=== PATIENT | female | born 1980 | race Caucasian/White ===

== ENCOUNTER 2016-06-11 21:50 | Emergency (ER) | payer MEDICAID ==
[2016-06-11 21:53] VITALS: BMI 48.2
[2016-06-11] MEDS ORDERED: Albuterol-Ipratrop 3 mg / 0.5 (3 ml) UD ONE (21:53)
[2016-06-11] MEDS ORDERED: Promethazine/Cod 6.25mg-10mg/5ml Syr UD PO STA (21:55)
--- NOTE | 2016-06-11 21:56 | ED PDOC ---
Arrival/HPI - General Time Seen by Provider: 06/11/16 21:52 Historian: Patient - History of Present Illness Narrative History of Present Illness (Text): 06/11/16 21:54 Mikey Shukla is a 35 year old female, whose past medical history includes asthma, who presents to the Emergency department complaining of shortness of breath with associated cough since yesterday. Patient states symptoms are similar to previous episodes of asthma. Patient states she had Prednisone yesterday and has been using her child's nebulizer treatments with minimal relief because she ran out of her own medications. Patient denies any fever, chills, chest pain, nausea, vomiting, diarrhea, urinary symptoms, back pain, neck pain, headache, dizziness, or any other complaints. Time/Duration: Other (yesterday) Symptom Onset: Gradual Symptom Course: Unchanged Activities at Onset: Rest, Light Context: Home Past Medical History - Provider Review Nursing Documentation Reviewed: Yes - Tetanus Immunization Tetanus Immunization: Unknown - Cardiac Hx Hypertension: Yes - Pulmonary Hx Asthma: Yes (advait and albuterol inhaler) - Neurological Hx Migraine: Yes Hx Transient Ischemic Attacks (TIA): Yes (last year) - HEENT Hx HEENT Disorder: Yes (glasses) - Endocrine/Metabolic Hx Endocrine Disorders: No - Hematological/Oncological Hx Blood Disorders: No - Integumentary Hx Dermatological Disorder: No - Musculoskeletal/Rheumatological Hx Fractures: Yes (left wrist orif) - Gastrointestinal Hx Gastrointestinal Disorders: No - Genitourinary/Gynecological Hx Genitourinary Disorders: No Other/Comment: Bilateral ovarian cysts - Psychiatric Hx Substance Use: No - Past Surgical History Past Surgical History: No Previous - Surgical History Hx Orthopedic Surgery: Yes - Anesthesia Hx Anesthesia: Yes Hx Anesthesia Reactions: No Hx Malignant Hyperthermia: No - Suicidal Assessment Feels Threatened In Home Enviroment: No Family/Social History - Physician Review Nursing Documentation Reviewed: Yes Family/Social History: No Known Family HX Smoking Status: Never Smoked Hx Alcohol Use: No Hx Substance Use: No Hx Substance Use Treatment: No Allergies/Home Meds Allergies/Adverse Reactions: Allergies No Known Allergies Allergy (Verified 06/11/16 21:53) Home Medications: Home Meds Medication Instructions Recorded Confirmed Albuterol HFA [Ventolin HFA 90 1 puff IH PRN PRN 02/21/14 06/11/16 mcg/actuation (8 g)] Ethinyl Estradiol/Norgestrel 1 tab PO DAILY 02/21/14 06/11/16 [Lo/Ovral 30 Mcg-0.3 mg] Acetaminophen [Tylenol] 325 mg PO Q6 02/27/14 06/11/16 Fluticasone/Salmeterol 250/50 1 dsk IH DAILY 02/27/14 06/11/16 [Advair Diskus] Ketorolac Tromethamine [Toradol] 10 mg PO Q8 02/27/14 06/11/16 Review of Systems - Physician Review All systems were reviewed & negative as marked: Yes - Review of Systems Constitutional: Normal. absent: Fevers Eyes: Normal ENT: Normal Respiratory: SOB, Cough Cardiovascular: Normal. absent: Chest Pain Gastrointestinal: Normal. absent: Abdominal Pain, Diarrhea, Nausea, Vomiting Genitourinary Female: Normal. absent: Dysuria, Frequency, Hematuria, Urine Output Changes Musculoskeletal: Normal. absent: Back Pain, Neck Pain Skin: Normal. absent: Rash Neurological: Normal. absent: Headache, Dizziness Endocrine: Normal Hemo/Lymphatic: Normal Psychiatric: Normal Physical Exam Vital Signs Reviewed: Yes Vital Signs Temp Pulse Resp BP Pulse Ox 06/12/16 00:18 82 16 98 06/12/16 00:15 98.2 F 90 16 98 06/11/16 22:10 18 98 06/11/16 22:03 164/94 H 06/11/16 21:55 98.1 F 90 20 95 Temperature: Afebrile Blood Pressure: Normal Pulse: Regular Respiratory Rate: Normal Appearance: Positive for: Well-Appearing, Non-Toxic, Comfortable Pain Distress: None Mental Status: Positive for: Alert and Oriented X 3 - Systems Exam Head: Present: Atraumatic, Normocephalic Pupils: Present: PERRL Extroacular Muscles: Present: EOMI Conjunctiva: Present: Normal Mouth: Present: Moist Mucous Membranes Neck: Present: Normal Range of Motion Respiratory/Chest: Present: Wheezes. No: Respiratory Distress, Accessory Muscle Use Cardiovascular: Present: Regular Rate and Rhythm, Normal S1, S2. No: Murmurs Abdomen: Present: Normal Bowel Sounds. No: Tenderness, Distention, Peritoneal Signs Back: Present: Normal Inspection Upper Extremity: Present: Normal Inspection. No: Cyanosis, Edema Lower Extremity: Present: Normal Inspection. No: Edema Neurological: Present: GCS=15, CN II-XII Intact, Speech Normal Skin: Present: Warm, Dry, Normal Color. No: Rashes Psychiatric: Present: Alert, Oriented x 3, Normal Insight, Normal Concentration Medical Decision Making ED Course and Treatment: 06/11/16 21:55 Impression: 35 year old female complaining of shortness of breath and cough tonight. Differential Diagnosis include but are not limited to: asthma vs. bronchitis Plan: -- Duoneb -- Solu-medrol -- Phenergan -- Reassess and disposition Prior Visits: Notes and results from previous visits were reviewed. Progress Notes: 06/11/16 23:40 On re-evaluation, the patient feels better and is in no acute distress. I have discussed the results and plan with the patient, who expresses understanding. Patient in agreement with plan to discharged home. Patient is stable for discharge. Patient was instructed to follow up with physician/clinic in 1-2 days or return if symptoms worsen or new concerning symptoms arise. Re-evaluation Time: 23:42 Reassessment Condition: Re-examined, Improved - Medication Orders Current Medication Orders: Discontinued Medications Albuterol/Ipratropium (Duoneb 3 Mg/0.5 Mg (3 Ml) Ud) Confirm Administered Dose 3 ml .ROUTE .STK-MED ONE Stop: 06/11/16 21:54 Last Admin: 06/11/16 22:14 Dose: Albuterol/Ipratropium (Duoneb 3 Mg/0.5 Mg (3 Ml) Ud) 3 ml IH Q15M OSCAR Stop: 06/11/16 22:31 Last Admin: 06/11/16 22:53 Dose: 3 ML Azithromycin (Zithromax) 500 mg PO ONCE STA PRN Reason: Protocol Stop: 06/11/16 23:48 Last Admin: 06/12/16 00:13 Dose: 500 MG Methylprednisolone (Solu-Medrol) 125 mg IVP ONCE ONE Stop: 06/11/16 21:56 Last Admin: 06/11/16 22:14 Dose: 125 MG IVP Administration Document 06/11/16 22:14 [facility] (Rec: 06/11/16 22:14 [facility] [id number]) Charges for Administration # of IVP Administrations 1 Promethazine HCl/Codeine (Phenergan/Codeine Oral Syrup) 5 ml PO ONCE STA Stop: 06/11/16 21:56 Last Admin: 06/11/16 22:14 Dose: 5 ML - Scribe Statement The provider has reviewed the documentation as recorded by the Beny Arellano Provider Attestation: All medical record entries made by the Kassyibjony were at my direction and personally dictated by me. I have reviewed the chart and agree that the record accurately reflects my personal performance of the history, physical exam, medical decision making, and the department course for this patient. I have also personally directed, reviewed, and agree with the discharge instructions and disposition. Disposition/Present on Arrival - Present on Arrival Any Indicators Present on Arrival: No History of DVT/PE: No History of Uncontrolled Diabetes: No Urinary Catheter: No History Surgical Site Infection Following: None - Disposition Have Diagnosis and Disposition been Completed?: Yes Diagnosis: Asthma, Bronchitis Disposition: HOME/ ROUTINE Disposition Time: 23:43 Condition: GOOD Discharge Instructions (ExitCare): Asthma (ED), Acute Bronchitis (ED) Prescriptions: Albuterol 0.083% [Albuterol Sulfate 3 Ml] 0.5 ml IH QID #25 neb Promethazine/Codeine [Codeine/Promethazine 10 MG/5 Ml-6.25 MG/5 Ml] 5 ml PO QID #100 ml Albuterol HFA [Ventolin HFA] 1 puff IH QID #1 puff Azithromycin [Zithromax] 250 mg PO DAILY #4 tab predniSONE [predniSONE Tab] 20 mg PO TID #15 tab
[2016-06-11] MEDS: Albuterol-Ipratrop 3 mg / 0.5 (3 ml) UD IH SCH ×3 (22:00→22:53)
[2016-06-11 22:03] VITALS: BP 164/94
[2016-06-12 00:16] VITALS: RESP 16; TEMP 98.2; O2SAT 98
[2016-06-12 00:19] VITALS: PULSE 82
== END 2016-06-12 00:19 | disposition home or self-care (01) ==
LOC: ED 21:50
DX: J45.909 Unspecified asthma, uncomplicated (principal)
CPT/HCPCS: 96374; 99284; J2930

== ENCOUNTER 2016-09-27 04:51 | Observation (INO) | payer MEDICAID ==
--- NOTE | 2016-09-27 05:13 | ED PDOC ---
Arrival/HPI - General Chief Complaint: Chest Pain Time Seen by Provider: 09/27/16 04:56 Historian: Patient - History of Present Illness Narrative History of Present Illness (Text): 09/27/16 05:09 Mikey Shukla is a 35 year old female, occasional smoker, presents to the emergency department complaining of epigastric/chest pain for past hour.Pt. describes discomfort as both a heaviness and burning sensation not accompanied by any SOB. Reports that pain is currently improving. Denies any fever, chills, headache, dizziness, shortness of breath, nausea, vomiting, diarrhea, urinary symptoms, or any other complaints at this time. Time/Duration: 1 hour Symptom Onset: Sudden Symptom Course: Improving Severity Level: Mild Activities at Onset: Light Context: Home Past Medical History - Provider Review Nursing Documentation Reviewed: Yes - Tetanus Immunization Tetanus Immunization: Unknown - Cardiac Hx Cardiac Disorders: No - Pulmonary Hx Asthma: Yes (advait and albuterol inhaler) Hx Pulmonary Embolism: Yes (2 yr) - Neurological Hx Migraine: Yes Hx Transient Ischemic Attacks (TIA): Yes (last year) - HEENT Hx HEENT Disorder: No (glasses) - Renal Hx Renal Disorder: No - Endocrine/Metabolic Hx Endocrine Disorders: No - Hematological/Oncological Hx Blood Disorders: No - Integumentary Hx Dermatological Disorder: No - Musculoskeletal/Rheumatological Hx Fractures: Yes (left wrist orif) - Gastrointestinal Hx Gastrointestinal Disorders: No Hx Gastritis: Yes - Genitourinary/Gynecological Hx Genitourinary Disorders: No Other/Comment: Bilateral ovarian cysts - Psychiatric Hx Anxiety: Yes Hx Emotional Abuse: No Hx Physical Abuse: No Hx Substance Use: No - Past Surgical History Past Surgical History: No Previous - Surgical History Hx Cholecystectomy: Yes Hx Orthopedic Surgery: Yes Hx Tubal Ligation: Yes - Anesthesia Hx Anesthesia: Yes Hx Anesthesia Reactions: No Hx Malignant Hyperthermia: No - Suicidal Assessment Feels Threatened In Home Enviroment: No Family/Social History - Physician Review Nursing Documentation Reviewed: Yes Family/Social History: No Known Family HX Smoking Status: Light Smoker < 10 Cigarettes Daily Hx Alcohol Use: No Hx Substance Use: No Hx Substance Use Treatment: No Allergies/Home Meds Allergies/Adverse Reactions: Allergies No Known Allergies Allergy (Verified 09/27/16 04:59) Home Medications: Home Meds Medication Instructions Recorded Confirmed No Known Home Med 09/27/16 09/27/16 Review of Systems - Physician Review All systems were reviewed & negative as marked: Yes - Review of Systems Constitutional: Normal. absent: Fatigue, Fevers Respiratory: Normal. absent: SOB, Cough Cardiovascular: Chest Pain. absent: Palpitations Gastrointestinal: Abdominal Pain (epigastric ). absent: Diarrhea, Nausea, Vomiting Genitourinary Female: Normal. absent: Dysuria, Frequency Neurological: Normal. absent: Headache, Dizziness Psychiatric: Normal Physical Exam Vital Signs Reviewed: Yes Vital Signs Temp Pulse Resp BP Pulse Ox 09/27/16 05:00 98.2 F 74 16 123/88 100 Temperature: Afebrile Blood Pressure: Normal Pulse: Regular Respiratory Rate: Normal Appearance: Positive for: Non-Toxic, Comfortable, Other (Morbidly obese) Pain Distress: None Mental Status: Positive for: Alert and Oriented X 3 - Systems Exam Head: Present: Atraumatic, Normocephalic Pupils: Present: PERRL Extroacular Muscles: Present: EOMI Conjunctiva: Present: Normal Respiratory/Chest: Present: Clear to Auscultation, Good Air Exchange. No: Respiratory Distress, Accessory Muscle Use Cardiovascular: Present: Regular Rate and Rhythm, Normal S1, S2. No: Murmurs Abdomen: Present: Tenderness (epigastric), Normal Bowel Sounds. No: Distention , Peritoneal Signs, Rebound, Guarding Upper Extremity: Present: Normal Inspection. No: Cyanosis, Edema Lower Extremity: Present: Normal Inspection. No: Edema Neurological: Present: GCS=15, CN II-XII Intact, Speech Normal, Motor Func Grossly Intact, Normal Sensory Function Skin: Present: Warm, Dry, Normal Color. No: Rashes Psychiatric: Present: Alert, Oriented x 3, Normal Insight, Normal Concentration Medical Decision Making ED Course and Treatment: 09/27/16 05:16 Impression: A 35 year old female who presents to the emergency department complaining of chest/epigastric pain. Plan: -- EKG -- Labs, cardiac enzymes -- Chest X-ray -- Reassess and disposition Progress Notes: 09/27/16 05:19 EKG interpreted by me: NSR @ 67 bpm. Normal axis. Normal interval. - Lab Interpretations Lab Results: 09/27/16 05:30 Lab Results 09/27/16 05:30: WBC 12.2 H, RBC 4.68, Hgb 11.8 L, Hct 36.5, MCV 78.0 L, MCH 25.2 , MCHC 32.3, RDW 16.0 H, Plt Count 286, MPV 11.8 H 09/27/16 05:30: PT 10.4, INR 0.96, APTT 29.9 I have reviewed the lab results: Yes - EKG Interpretation Interpreted by ED Physician: Yes Type: 12 lead EKG - Medication Orders Current Medication Orders: Discontinued Medications Famotidine (Pepcid) 20 mg IVP STAT STA Stop: 09/27/16 05:19 Last Admin: 09/27/16 05:31 Dose: 20 mg - Transfer of Care Patient signed out to Dr:: Gelacio Pending Labs:: Labs/abdominal U/S,reassess/final disposition - Scribe Statement The provider has reviewed the documentation as recorded by the Kassyibe Cali Nova Provider Attestation: Provider Scribe Attestation: All medical record entries made by the Scribe were at my direction and personally dictated by me. I have reviewed the chart and agree that the record accurately reflects my personal performance of the history, physical exam, medical decision making, and the department course for this patient. I have also personally directed, reviewed, and agree with the discharge instructions and disposition. Disposition/Present on Arrival - Present on Arrival Any Indicators Present on Arrival: No History of DVT/PE: No History of Uncontrolled Diabetes: No Urinary Catheter: No History of Decub. Ulcer: No History Surgical Site Infection Following: None - Disposition Have Diagnosis and Disposition been Completed?: No Diagnosis: Epigastric pain Disposition Time: 07:00 Condition: STABLE Forms: [facility] ([place])
[2016-09-27 05:41] LABS: HEMOGLOBIN 11.8 gm/dL (12.0-16.0); MEAN CORPUSCULAR HEMOGLOBIN 25.2 pg (25.0-35.0); MEAN CORPUSCULAR HGB CONC 32.3 g/dl (31.0-37.0); MEAN PLATELET VOLUME 11.8 fl (7.0-11.0); RBC 4.68 10^6/uL (3.5-6.1); WHITE BLOOD COUNT 12.2 10^3/ul (4.5-11.0)
[2016-09-27 05:47] LABS: INR 0.96 (0.93-1.08); PARTIAL THROMBOPLASTIN TIME 29.9 Seconds (23.7-30.8); PROTHROMBIN TIME 10.4 Seconds (9.9-11.8)
[2016-09-27 06:21] LABS: ALB/GLOB RATIO 1.2 (1.1-1.8); ALBUMIN 3.7 g/dL (3.0-4.8); ALT/SGPT 20 U/L (7-56); AST/SGOT 19 U/L (15-39); BLOOD UREA NITROGEN 9 mg/dL (7-21); CALCIUM 8.9 mg/dL (8.4-10.5); GFR AFRICAN-AMERICAN > 60; GFR NON-AFRICAN AMERICAN > 60; LIPASE 156 U/L (23-300)
[2016-09-27 06:55] LABS: TROPONIN I < 0.01 ng/mL
--- NOTE | 2016-09-27 07:04 | ED PDOC ---
Physical Exam Vital Signs Temp Pulse Resp BP Pulse Ox 09/27/16 07:54 72 18 120/83 98 09/27/16 05:00 98.2 F 74 16 123/88 100 Medical Decision Making ED Course and Treatment: 09/27/16 07:04: Patient sign out from overnight. Presence of Leukocytosis. Patient complaining of epigastric pain. Pending ultrasound. 09/27/16 07:31: Patient currently in no distress. Abdomen soft, non-tender. Notes that her pain was epigastric and retro-sternal. Notes that she has a TIA in the past. Patient with be observed for rule out ACS. Hospitalist paged. Pt aware of and agrees with plan. 09/27/16 07:30: EKG: Ordered, reviewed, and independently interpreted the EKG. Rate : 67 BPM Rhythm : NSR Interpretation : No ST-segment elevations, normal axis, normal intervals. Interpreted by me. 09/27/16 07.33: Case discussed with Dr. Suarez. Accepted observation to telemetry under his service. 09/27/16 08:08 Abdomen Ultrasound Dictator : Nagi Sood MD Report Date : 09/27/2016 08:02:46 IMPRESSION: Hepatomegaly suggested however no focal mass is seen the liver or prominent biliary duct dilatation. The gallbladder is not identified identified suggesting prior cholecystectomy. Clinically correlate. Common bile duct is dilated to 7.7 mm which may be on the basis of prior cholecystectomy. Partial imaging of the pancreas. The remainder the examination appears unremarkable. - Lab Interpretations Lab Results: 09/27/16 05:30 09/27/16 05:30 Lab Results 09/27/16 05:30: TSH 3rd Generation 6.34 H 09/27/16 05:30: Triglycerides 79, Cholesterol 108 L, LDL Cholesterol Direct 85, HDL Cholesterol 20 L 09/27/16 05:30: WBC 12.2 H, RBC 4.68, Hgb 11.8 L, Hct 36.5, MCV 78.0 L, MCH 25.2 , MCHC 32.3, RDW 16.0 H, Plt Count 286, MPV 11.8 H 09/27/16 05:30: Sodium 141, Potassium 3.5 L, Chloride 109, Carbon Dioxide 22, Anion Gap 14, BUN 9, Creatinine 0.7, Est GFR ( Amer) > 60, Est GFR (Non- Af Amer) > 60, Random Glucose 120 H, Calcium 8.9, Total Bilirubin 0.3, AST 19, ALT 20, Alkaline Phosphatase 64, Lactate Dehydrogenase 338, Total Creatine Kinase 79, Troponin I < 0.01, Total Protein 6.8, Albumin 3.7, Globulin 3.1, Albumin/Globulin Ratio 1.2, Lipase 156 09/27/16 05:30: PT 10.4, INR 0.96, APTT 29.9 - RAD Interpretation Radiology Orders: 09/27/16 06:43 ABDOMEN COMPLETE [US] Stat - Medication Orders Current Medication Orders: Enoxaparin Sodium (Lovenox) 40 mg SC DAILY OSCAR PRN Reason: Protocol Last Admin: 09/27/16 11:04 Dose: 40 mg Ondansetron HCl (Zofran Inj) 4 mg IVP Q4H PRN PRN Reason: Nausea/Vomiting Pantoprazole Sodium (Protonix Inj) 40 mg IVP DAILY [facility] Last Admin: 09/27/16 11:05 Dose: 40 mg Discontinued Medications Aspirin (Aspirin Chewable) 324 mg PO STAT STA Stop: 09/27/16 07:32 Last Admin: 09/27/16 08:19 Dose: 324 mg Aspirin (Aspirin Chewable) Confirm Administered Dose 324 mg .ROUTE .STK-MED ONE Stop: 09/27/16 07:59 Last Admin: 09/27/16 09:11 Dose: 324 mg Comments: duplicate Famotidine (Pepcid) 20 mg IVP STAT STA Stop: 09/27/16 05:19 Last Admin: 09/27/16 05:31 Dose: 20 mg Potassium Chloride (K-Dur 20 Meq Er Tab) 40 meq PO STAT STA Stop: 09/27/16 08:20 Last Admin: 09/27/16 09:11 Dose: 40 meq - Scribe Statement The provider has reviewed the documentation as recorded by the Beny Mai Provider Kassyibe Attestation: All medical record entries made by the Scribjony were at my direction and personally dictated by me. I have reviewed the chart and agree that the record accurately reflects my personal performance of the history, physical exam, medical decision making, and the department course for this patient. I have also personally directed, reviewed, and agree with the discharge instructions and disposition. Disposition/Present on Arrival - Present on Arrival Any Indicators Present on Arrival: No History of DVT/PE: No History of Uncontrolled Diabetes: No Urinary Catheter: No History of Decub. Ulcer: No History Surgical Site Infection Following: None - Disposition Have Diagnosis and Disposition been Completed?: Yes Diagnosis: Chest pain Disposition: HOSPITALIZED Disposition Time: 07:34 Patient Plan: Observation Patient Problems: Current Active Problems Problem Status Onset Chest pain Acute Condition: STABLE
--- NOTE | 2016-09-27 08:04 | US ---
HISTORY: pain COMPARISON: TECHNIQUE: Sonographic evaluation of the abdomen. FINDINGS: LIVER: Measures 21.7 cm. Normal echogenicity of the liver parenchyma. No mass. No intrahepatic bile duct dilatation. GALLBLADDER: Appears to be surgically absent. Clinically correlate further. COMMON BILE DUCT: Measures 7.7 mm. Very mildly dilated, likely on the basis of prior cholecystectomy. No choledocholithiasis identified. PANCREAS: The tail of the pancreas is obscured by overlying bowel remainder unremarkable appearing. RIGHT KIDNEY: Measures 12.7 x 5.4 x 5.5cm. No focal cyst or solid lesion identified. No calculus, or hydronephrosis. LEFT KIDNEY: Measures 14.3 x 4.9 x 5.5cm. No focal cyst or solid lesion identified. No calculus, or hydronephrosis. SPLEEN: Normal in size and contour. No mass. AORTA: No aneurysmal dilatation. IVC: Unremarkable. OTHER FINDINGS: None. IMPRESSION: Hepatomegaly suggested however no focal mass is seen the liver or prominent biliary duct dilatation. The gallbladder is not identified identified suggesting prior cholecystectomy. Clinically correlate. Common bile duct is dilated to 7.7 mm which may be on the basis of prior cholecystectomy. Partial imaging of the pancreas. The remainder the examination appears unremarkable.
[2016-09-27] MEDS ORDERED: Potassium Chloride 20 mEq ER Tab PO STA (08:19)
--- NOTE | 2016-09-27 10:07 | CARD ---
APPROVED REPORT EKG Measurement Heart [id number] IN [id number] <Conclusion> Normal sinus rhythm Normal ECG
[2016-09-27 10:30] LABS: HDL CHOLESTEROL 20 mg/dL (29-60)
[2016-09-27 10:41] LABS: LDL CHOLESTEROL 85 mg/dL (0-129)
[2016-09-27] MEDS: Enoxaparin 40 mg Syringe SC SCH (11:04)
--- NOTE | 2016-09-27 13:15 | CP.PCM.HP ---
<Kenyatta Kumar - Last Filed: 09/27/16 13:11> History of Present Illness - History of Present Illness History of Present Illness: 35F presented to the ED with mid-epigastric pain that is characterized as dull and burning. It worse when laying down. Patient states she ate chicken nuggets at 10:30pm, fell asleep at 12:30am, woke up at 4am with pain. Pain is localized to midepigastric region. does not radiate to the back or shoulders. The pain has not gone away. Patient denies vomitting, admits to some nausea, and some shortness of breath. Patient denies Fever, Chills, constipation, diarrhea, lower abdominal pain. Patient admits to palpitations 4 months ago and states her mother and sister get the same kind of palpitations. Patient states she has been worked up for cardiac issues in the past (3 years ago). The work-up included stress tests, 48 hour holter monitor, and echo. All of which were normal. Patient is currently on her period (day 3). Normal cycle. normal flow per patient's observation. PMH: asthma, pre-DM, TIA (2013), PE complication from tubal ligation PSH: laparoscopic tubal ligation with PE complication ALL: NKDA PMD: Dr. Norton Present on Admission - Present on Admission Any Indicators Present on Admission: Yes History of DVT/PE: Yes History of Uncontrolled Diabetes: No Urinary Catheter: No Decubitus Ulcer Present: No Review of Systems - Constitutional Constitutional: As Per HPI. absent: Increased Appetite - EENT Eyes: absent: Blurred Vision, Loss of Peripheral Vision Ears: absent: Abnormal Hearing Nose/Mouth/Throat: absent: Nasal Discharge, Dysphagia, Throat Swelling, Tongue Swelling - Respiratory Respiratory: absent: Cough, Wheezing, Excessive Mucous Production Additional comments: SOB Past Patient History - Tetanus Immunizations Tetanus Immunization: Unknown - Past Medical History & Family History Past Medical History?: Yes - Past Social History Smoking Status: Hookah on occasion Alcohol: Social Drugs: Denies - CARDIAC Hx Cardiac Disorders: No - PULMONARY Hx Asthma: Yes (advait and albuterol inhaler) Hx Pulmonary Embolism: Yes (2 yr) - NEUROLOGICAL Hx Migraine: Yes Hx Transient Ischemic Attacks (TIA): Yes (last year) - HEENT Hx HEENT Problems: No (glasses) - RENAL Hx Chronic Kidney Disease: No - ENDOCRINE/METABOLIC Hx Endocrine Disorders: No - HEMATOLOGICAL/ONCOLOGICAL Hx Blood Disorders: No - INTEGUMENTARY Hx Dermatological Problems: No - MUSCULOSKELETAL/RHEUMATOLOGICAL Hx Fractures: Yes (left wrist orif) - GASTROINTESTINAL Hx Gastrointestinal Disorders: No Hx Gastritis: Yes - GENITOURINARY/GYNECOLOGICAL Hx Genitourinary Disorders: No Other/Comment: Bilateral ovarian cysts - PSYCHIATRIC Hx Anxiety: Yes Hx Emotional Abuse: No Hx Physical Abuse: No Hx Substance Use: No - SURGICAL HISTORY Hx Cholecystectomy: Yes Hx Orthopedic Surgery: Yes Hx Tubal Ligation: Yes - ANESTHESIA Hx Anesthesia: Yes Hx Anesthesia Reactions: No Hx Malignant Hyperthermia: No Meds Home Medications: Home Medication List Medication Instructions Recorded Confirmed Type Levothyroxine [Synthroid] 25 mcg PO DAILY #30 tab 09/28/16 Rx Pantoprazole Sodium [Protonix] 40 mg PO DAILY #30 tablet. 09/28/16 Rx Allergies/Adverse Reactions: Allergies Allergy/AdvReac Type Severity Reaction Status Date / Time No Known Allergies Allergy Verified 09/27/16 11:25 Results - Vital Signs Recent Vital Signs: Last Vital Signs Temp 98.2 F 09/27/16 07:54 Pulse 68 09/27/16 12:18 Resp 18 09/27/16 12:18 BP 118/77 09/27/16 12:18 Pulse Ox 100 09/27/16 12:18 - Labs Result Diagrams: 09/27/16 05:30 09/27/16 05:30 Labs: Laboratory Results - last 24 hr 09/27/16 09/27/16 08:20 11:45 D-Dimer, Quantitative 0.19 Troponin I < 0.01 - EKG Data EKG Interpreted by: ER Physician EKG shows normal: Sinus rhythm Rate: Normal Assessment & Plan - Assessment and Plan (Free Text) Assessment: 35 F presents with midepigastric pain that worsens when laying down. 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 advise to quit Hx of Asthma albuterol PRN history of PE f/u echo to evaluate LV function, f/u duplex LE INR 0.96 DVT/GI PPX Lovenox/Pepcid Kenyatta Eng, DO PGY1 <Rowdy Snyder - Last Filed: 09/28/16 17:11> Results - Vital Signs Recent Vital Signs: Last Vital Signs Temp 98.2 F 09/27/16 12:45 Pulse 72 09/27/16 12:45 Resp 18 09/27/16 12:45 BP 118/77 09/27/16 12:45 Pulse Ox 100 09/27/16 12:18 - Labs Result Diagrams: 09/28/16 05:00 09/28/16 05:00 Labs: Laboratory Results - last 24 hr 09/27/16 09/27/16 08:20 11:45 D-Dimer, Quantitative 0.19 Troponin I < 0.01 Attending/Attestation - Attestation I have personally seen and examined this patient.: Yes I have fully participated in the care of the patient.: Yes I have reviewed all pertinent clinical information: Yes Notes (Text): 09/27/16 17:41 attending note; Patient seen and examined with resident in ER. Patient is a 35-year-old obese female admitted with epigastric/chest pain. Risk factors includes obesity, hyperlipidemia, history of PE in the past. Admit to telemetry. Cardiac enzymes x3 ordered. d-dimer is negative. Venous Doppler is negative. cardiology evaluation requested. TSH/lipid profile ordered. Obesity; diet, exercise and weight reduction advised. Epigastric pain; needs outpatient GI evaluation for endoscopy. Continue Protonix for now. Fatty liver. LFTs normal. Upon discharge the patient will follow-up with PMD .
[2016-09-27 13:18] VITALS: BMI 58.2
[2016-09-27] MEDS ORDERED: Pneumococcal 23-Valent Vaccine IM ONE (13:18)
[2016-09-27] MEDS ORDERED: Alum-Mag Hydrox-Simethicone Susp (30 mL) PO PRN (14:42)
--- NOTE | 2016-09-27 16:52 | CARD ---
APPROVED REPORT EXAM: Two-dimensional and M-mode echocardiogram with Doppler and color Doppler. INDICATION LVFX 2D DIMENSIONS Left Atrium (2D)4.1 (1.6-4.0cm)IVSd1.0 (0.7-1.1cm) LVDd4.6 (3.9-5.9cm)PWd1.1 (0.7-1.1cm) LVDs3.2 (2.5-4.0cm)FS (%) 30.6 % LVEF (%)58.2 (>50%) M-Mode DIMENSIONS Aortic Root3.40 (2.2-3.7cm)Aortic Cusp Exc.1.80 (1.5-2.0cm) Aortic Valve AoV Peak Cqunupzz197.0cm/Amira Peak GR.9mmHg Mitral Valve MV E Zfmlcydr718.0cm/sMV A Ezozyipu82.4cm/sE/A ratio1.2 TDI Lateral E' Peak V10.10cm/sMedial E' Peak V8.77cm/sE/Lateral E'10.2 E/Medial E'11.7 Pulmonary Valve PV Peak Rqcreqgw13.1cm/sPV Peak Grad.2mmHg Tricuspid Valve TR Peak Irwmlpbf539zb/sRAP [id number] Peak Gr.22mmHg [id number] LEFT VENTRICLE The left ventricle is normal size. There is normal left ventricular wall thickness. The left ventricular function is normal. The left ventricular ejection fraction is within the normal range. There is normal LV segmental wall motion. RIGHT VENTRICLE The right ventricle is normal size. The right ventricular systolic function is normal. ATRIA The left atrium is borderline dilated. The right atrium size is normal. The interatrial septum is intact with no evidence for an atrial septal defect. AORTIC VALVE The aortic valve is normal in structure. No aortic regurgitation is present. There is no aortic valvular stenosis. MITRAL VALVE The mitral valve is normal in structure. There is no mitral valve regurgitation noted. TRICUSPID VALVE The tricuspid valve is normal in structure. There is mild tricuspid regurgitation. PULMONIC VALVE The pulmonary valve is normal in structure. GREAT VESSELS The aortic root is normal in size. The IVC is normal in size and collapses >50% with inspiration. PERICARDIAL EFFUSION There is no pleural effusion. There is no pericardial effusion. <Conclusion> Borderline LA enlargement. Normal LV size and systolic function. Mild TR.
--- NOTE | 2016-09-27 18:31 | US ---
HISTORY: Leg pain and swelling. Evaluate for DVT PHYSICIAN(S): Saul Smith MD. TECHNIQUE: Duplex sonography and color-flow Doppler with graded compression were used to evaluate the deep venous systems of both lower extremities. FINDINGS: The visualized deep venous systems of both lower extremities are sonographically normal and compressible. Normal wave forms and augmentation are seen. There is no sonographic evidence for deep venous thrombosis in the visualized segments of both lower extremities. IMPRESSION: No sonographic evidence for deep venous thrombosis in the visualized segments of both lower extremities.
[2016-09-27 18:52] VITALS: RESP 19
--- NOTE | 2016-09-28 00:27 | CON ---
REASON FOR CONSULTATION: Epigastric discomfort. HISTORY OF PRESENT ILLNESS: The patient is a 35-year-old morbidly obese female who has a history of TIA according to the patient some 4 years ago at [facility] when she lost power in her left upper and lower extremity. The patient does have a history of pulmonary embolism, was diagnosed in February 2014; however, apparently with complication of tubal ligation that was performed in January 2014. The patient was placed on Coumadin therapy for 1 year and the patient was screened by her space operations for hypercoagulable state and was told she does not have to continue on Coumadin after 1 year. The patient underwent cholecystectomy in November of last year. She presents because of epigastric burning sensation and is unaware of any prior history of heart attack in the past. SOCIAL HISTORY: The patient is occasional smoker. PAST MEDICAL HISTORY: History of bronchial asthma, history of pulmonary embolism diagnosed in February 2014. MEDICATIONS: Lovenox 40 mg subcutaneous once a day, Maalox 30 mL p.o. daily p.r.n., Protonix 40 mg , Synthroid 25 mcg once a day, Zofran 4 mg q. 4 hours p.r.n. PHYSICAL EXAMINATION: GENERAL: The patient is a middle-aged female who does not appear to be in acute distress. VITAL SIGNS: Blood pressure 118/77, heart rate 68, temperature 98.2 and respirations 18. HEENT: Head normocephalic. CHEST: Clear. HEART: S1 and S2, regular. ABDOMEN: Soft. EXTREMITIES: No edema or calf tenderness. LABORATORY DATA: Two sets of troponin are negative. SMA-7 within normal limits except for potassium 3.5 and glucose of 120. TSH level is 6.34. Lipase is 156. PT, PTT, D-dimer are within normal limits. Hemoglobin, hematocrit 11.8 and 36.5, white count 12.2 and platelet count 186,000. Venous Doppler lower extremity reports still pending. ASSESSMENT: 1. Atypical chest pain, myocardial infarction is ruled out. 2. Rule out gastritis or peptic ulcer disease. 3. Borderline hypokalemia, which was already replaced with 40 mEq of KCl orally. RECOMMENDATIONS: Continue current IV Protonix, continue Synthroid, and prophylaxis subcutaneous Lovenox and case was discussed with Dr. Leiva. I will follow the echocardiograph study which was performed today. No invasive cardiac workup is justified at this time. Abram Zafar MD
[2016-09-28] MEDS ORDERED: Levothyroxine 25 MCG TAB PO SCH (06:00)
[2016-09-28 06:38] VITALS: BP 117/64; TEMP 98.5
[2016-09-28 08:25] LABS: BASO # 0.02 K/mm3 (0.0-2.0); BASO % 0.2 % (0.0-3.0); EOS # 0.1 (0.0-0.7); EOS % 1.5 % (1.5-5.0); GRAN # 6.25 (1.4-6.5); GRAN % 67.2 % (50.0-68.0); HEMOGLOBIN 12.3 gm/dL (12.0-16.0); LYMPH # 2.3 (1.2-3.4); LYMPH % 24.6 % (22.0-35.0); MEAN CELL VOLUME 78.6 fL (80.0-105.0); MEAN CORPUSCULAR HEMOGLOBIN 25.1 pg (25.0-35.0); MEAN CORPUSCULAR HGB CONC 31.9 g/dl (31.0-37.0); MEAN PLATELET VOLUME 12.1 fl (7.0-11.0); MONO # 0.6 (0.1-0.6); MONO % 6.5 % (1.0-6.0); PLATELET COUNT 282 10^3/uL (120.0-450.0); WHITE BLOOD COUNT 9.3 10^3/ul (4.5-11.0)
[2016-09-28 08:37] LABS: ALB/GLOB RATIO 1.1 (1.1-1.8); ALBUMIN 3.8 g/dL (3.0-4.8); ALT/SGPT 28 U/L (7-56); AST/SGOT 21 U/L (15-39); BLOOD UREA NITROGEN 11 mg/dL (7-21); GFR AFRICAN-AMERICAN > 60; GFR NON-AFRICAN AMERICAN > 60
[2016-09-28] MEDS: Enoxaparin 40 mg Syringe SC SCH (09:20)
--- NOTE | 2016-09-28 10:53 | CP.PCM.DIS ---
<JoséKenyatta - Last Filed: 09/28/16 10:56> Provider - Provider Date of Admission: 09/27/16 07:35 Attending physician: Desire Suarez MD Consults: Dr. Zafar - Cardiology Time Spent in preparation of Discharge (in minutes): 30 Hospital Course - Lab Results Lab Results: Most Recent Lab Values WBC 9.3 10^3/ul (4.5-11.0) D 09/28/16 05:00 RBC 4.90 10^6/uL (3.5-6.1) 09/28/16 05:00 Hgb 12.3 gm/dL (12.0-16.0) 09/28/16 05:00 Hct 38.5 % (36.0-48.0) 09/28/16 05:00 MCV 78.6 fL (80.0-105.0) L 09/28/16 05:00 MCH 25.1 pg (25.0-35.0) 09/28/16 05:00 MCHC 31.9 g/dl (31.0-37.0) 09/28/16 05:00 RDW 16.0 % (11.5-14.5) H 09/28/16 05:00 Plt Count 282 10^3/uL (120.0-450.0) 09/28/16 05:00 MPV 12.1 fl (7.0-11.0) H 09/28/16 05:00 Gran % 67.2 % (50.0-68.0) 09/28/16 05:00 Lymph % (Auto) 24.6 % (22.0-35.0) 09/28/16 05:00 [place] % (Auto) 6.5 % (1.0-6.0) H 09/28/16 05:00 Eos % (Auto) 1.5 % (1.5-5.0) 09/28/16 05:00 Baso % (Auto) 0.2 % (0.0-3.0) 09/28/16 05:00 Gran # 6.25 (1.4-6.5) 09/28/16 05:00 Lymph # 2.3 (1.2-3.4) 09/28/16 05:00 [place] # 0.6 (0.1-0.6) 09/28/16 05:00 Eos # 0.1 (0.0-0.7) 09/28/16 05:00 Baso # 0.02 K/mm3 (0.0-2.0) 09/28/16 05:00 PT 10.4 Seconds (9.9-11.8) 09/27/16 05:30 INR 0.96 (0.93-1.08) 09/27/16 05:30 APTT 29.9 Seconds (23.7-30.8) 09/27/16 05:30 D-Dimer, Quantitative 0.19 mg/L FEU (0-0.50) 09/27/16 08:20 Sodium 140 mmol/L (132-148) 09/28/16 05:00 Potassium 3.8 mmol/L (3.6-5.0) 09/28/16 05:00 Chloride 107 mmol/L (98-107) 09/28/16 05:00 Carbon Dioxide 26 mmol/L (21-33) 09/28/16 05:00 Anion Gap 11 (10-20) 09/28/16 05:00 BUN 11 mg/dL (7-21) 09/28/16 05:00 Creatinine 0.7 mg/dL (0.5-1.4) 09/28/16 05:00 Est GFR ( Amer) > 60 09/28/16 05:00 Est GFR (Non-Af Amer) > 60 09/28/16 05:00 Random Glucose 93 mg/dL (70-110) 09/28/16 05:00 Hemoglobin A1c 6.1 % (4.2-6.5) 09/27/16 05:30 Calcium 9.0 mg/dL (8.4-10.5) 09/28/16 05:00 Total Bilirubin 0.4 mg/dL (0.2-1.3) 09/28/16 05:00 AST 21 U/L (15-39) 09/28/16 05:00 ALT 28 U/L (7-56) 09/28/16 05:00 Alkaline Phosphatase 68 U/L (38-133) 09/28/16 05:00 Lactate Dehydrogenase 338 U/L (333-699) 09/27/16 05:30 Total Creatine Kinase 79 U/L (35-230) 09/27/16 05:30 Troponin I < 0.01 ng/mL 09/27/16 17:30 Total Protein 7.4 g/dL (5.8-8.3) 09/28/16 05:00 Albumin 3.8 g/dL (3.0-4.8) 09/28/16 05:00 Globulin 3.6 gm/dL 09/28/16 05:00 Albumin/Globulin Ratio 1.1 (1.1-1.8) 09/28/16 05:00 Triglycerides 79 mg/dL (35-160) 09/27/16 05:30 Cholesterol 108 mg/dL (130-200) L 09/27/16 05:30 LDL Cholesterol Direct 85 mg/dL (0-129) 09/27/16 05:30 HDL Cholesterol 20 mg/dL (29-60) L 09/27/16 05:30 Lipase 156 U/L (23-300) 09/27/16 05:30 Free T4 1.29 ng/dL (0.78-2.19) 09/27/16 17:30 Total T3 1.41 ng/mL (0.97-1.69) 09/28/16 07:45 TSH 3rd Generation 6.34 mIU/mL (0.46-4.68) H 09/27/16 05:30 - Hospital Course Hospital Course: PT arrived in the ED after an episode of abdominal pain characterized as a dull burning pain located midepigastric to upper abdomen. no radiation to back, shoulders and neck. Cardiac evaluation was placed. EKG showed bradycardia, Echo normal, TSH elevated, T4 1.29. T3 1.41 TSH 6.34. Patient has resolving symptoms when seen this morning on 09/28. Patient states she is feeling better and is stable for discharge. Please see MAR for further information - Date & Time of H&P Date of H&P: 09/28/16 Time of H&P: 10:55 Discharge Exam - Head Exam Head Exam: NORMAL INSPECTION - Eye Exam Eye Exam: EOMI, Normal appearance Pupil Exam: NORMAL ACCOMODATION - ENT Exam ENT Exam: Mucous Membranes Moist - Neck Exam Neck exam: Full Rom, Normal Inspection Additional comments: no thyromegaly appreciated - Respiratory Exam Respiratory Exam: NORMAL BREATHING PATTERN - Cardiovascular Exam Cardiovascular Exam: REGULAR RHYTHM. absent: Bradycardia, Tachycardia - GI/Abdominal Exam GI & Abdominal Exam: Soft, Tenderness. absent: Diminished Bowel Sounds, Guarding, Rebound, Rigid - Neurological Exam Neurological exam: Alert, Normal Gait, Oriented x3 - Psychiatric Exam Psychiatric exam: Normal Affect, Normal Mood - Skin Skin Exam: Dry, Intact, Normal Color, Warm Discharge Plan - Discharge Medications Prescriptions: Levothyroxine [Synthroid] 25 mcg PO DAILY #30 tab Pantoprazole Sodium [Protonix] 40 mg PO DAILY #30 tablet.dr - Follow Up Plan Condition: STABLE Disposition: HOME/ ROUTINE Instructions: Acute Abdominal Pain (DC), Acute Abdominal Pain (GEN) Additional Instructions: f/u with PMD for re-evaluation of Thyroid function, A1c 6.1, referral to GI c/w with protonix for 4 weeks speak to diabetic diet advisor c/w 25 mg Levothyroxine until PMD visit. return to ED if symptoms of palpitations, chest pain, abdominal pain worsen. <Rowdy Snyder - Last Filed: 09/28/16 17:13> Provider - Provider Date of Admission: 09/27/16 07:35 Attending physician: Desire Suarez MD [place] [facility] Course - Lab Results Lab Results: Most Recent Lab Values WBC 9.3 10^3/ul (4.5-11.0) D 09/28/16 05:00 RBC 4.90 10^6/uL (3.5-6.1) 09/28/16 05:00 Hgb 12.3 gm/dL (12.0-16.0) 09/28/16 05:00 Hct 38.5 % (36.0-48.0) 09/28/16 05:00 MCV 78.6 fL (80.0-105.0) L 09/28/16 05:00 MCH 25.1 pg (25.0-35.0) 09/28/16 05:00 MCHC 31.9 g/dl (31.0-37.0) 09/28/16 05:00 RDW 16.0 % (11.5-14.5) H 09/28/16 05:00 Plt Count 282 10^3/uL (120.0-450.0) 09/28/16 05:00 MPV 12.1 fl (7.0-11.0) H 09/28/16 05:00 Gran % 67.2 % (50.0-68.0) 09/28/16 05:00 Lymph % (Auto) 24.6 % (22.0-35.0) 09/28/16 05:00 [place] % (Auto) 6.5 % (1.0-6.0) H 09/28/16 05:00 Eos % (Auto) 1.5 % (1.5-5.0) 09/28/16 05:00 Baso % (Auto) 0.2 % (0.0-3.0) 09/28/16 05:00 Gran # 6.25 (1.4-6.5) 09/28/16 05:00 Lymph # 2.3 (1.2-3.4) 09/28/16 05:00 [place] # 0.6 (0.1-0.6) 09/28/16 05:00 Eos # 0.1 (0.0-0.7) 09/28/16 05:00 Baso # 0.02 K/mm3 (0.0-2.0) 09/28/16 05:00 PT 10.4 Seconds (9.9-11.8) 09/27/16 05:30 INR 0.96 (0.93-1.08) 09/27/16 05:30 APTT 29.9 Seconds (23.7-30.8) 09/27/16 05:30 D-Dimer, Quantitative 0.19 mg/L FEU (0-0.50) 09/27/16 08:20 Sodium 140 mmol/L (132-148) 09/28/16 05:00 Potassium 3.8 mmol/L (3.6-5.0) 09/28/16 05:00 Chloride 107 mmol/L (98-107) 09/28/16 05:00 Carbon Dioxide 26 mmol/L (21-33) 09/28/16 05:00 Anion Gap 11 (10-20) 09/28/16 05:00 BUN 11 mg/dL (7-21) 09/28/16 05:00 Creatinine 0.7 mg/dL (0.5-1.4) 09/28/16 05:00 Est GFR ( Amer) > 60 09/28/16 05:00 Est GFR (Non-Af Amer) > 60 09/28/16 05:00 Random Glucose 93 mg/dL (70-110) 09/28/16 05:00 Hemoglobin A1c 6.1 % (4.2-6.5) 09/27/16 05:30 Calcium 9.0 mg/dL (8.4-10.5) 09/28/16 05:00 Total Bilirubin 0.4 mg/dL (0.2-1.3) 09/28/16 05:00 AST 21 U/L (15-39) 09/28/16 05:00 ALT 28 U/L (7-56) 09/28/16 05:00 Alkaline Phosphatase 68 U/L (38-133) 09/28/16 05:00 Lactate Dehydrogenase 338 U/L (333-699) 09/27/16 05:30 Total Creatine Kinase 79 U/L (35-230) 09/27/16 05:30 Troponin I < 0.01 ng/mL 09/27/16 17:30 Total Protein 7.4 g/dL (5.8-8.3) 09/28/16 05:00 Albumin 3.8 g/dL (3.0-4.8) 09/28/16 05:00 Globulin 3.6 gm/dL 09/28/16 05:00 Albumin/Globulin Ratio 1.1 (1.1-1.8) 09/28/16 05:00 Triglycerides 79 mg/dL (35-160) 09/27/16 05:30 Cholesterol 108 mg/dL (130-200) L 09/27/16 05:30 LDL Cholesterol Direct 85 mg/dL (0-129) 09/27/16 05:30 HDL Cholesterol 20 mg/dL (29-60) L 09/27/16 05:30 Lipase 156 U/L (23-300) 09/27/16 05:30 Free T4 1.29 ng/dL (0.78-2.19) 09/27/16 17:30 Total T3 1.41 ng/mL (0.97-1.69) 09/28/16 07:45 TSH 3rd Generation 6.34 mIU/mL (0.46-4.68) H 09/27/16 05:30 Attending/Attestation - Attestation I have personally seen and examined this patient.: Yes I have fully participated in the care of the patient.: Yes I have reviewed all pertinent clinical information, including history, physical exam and plan: Yes Notes (Text): 09/28/16 17:12 attending note; Patient seen and examined with resident in ER. Patient is a 35-year-old obese female admitted with epigastric/chest pain. Cardiac enzymes x3 negative.d-dimer is negative. Venous Doppler is negative. cardiology evaluation appreciated. Echocardiogram showed normal LV function. hypothyroidism; started on Synthroid. glucose intolerance; dietary education given. Hemoglobin A1c 6.1. Obesity; diet, exercise and weight reduction advised. Epigastric pain; needs outpatient GI evaluation for endoscopy. Continue Protonix for now. Fatty liver. LFTs normal. Upon discharge the patient will follow-up with PMD . diagnosis; Atypical chest pain Epigastric pain/ GERD Hypothyroidism 09/28/16 17:12
[2016-09-28 11:06] VITALS: O2SAT 99
[2016-09-28 14:16] VITALS: PULSE 64
== END 2016-09-28 14:19 | disposition home or self-care (01) ==
LOC: ED 04:51 → ERH 07:35 → 3RSO 12:44
PROVIDERS: ADMIT Internal Medicine; ATTEND Internal Medicine
DX: R07.89 Other chest pain (principal); R10.13 Epigastric pain; K21.9 Gastro-esophageal reflux disease without esophagitis; E03.9 Hypothyroidism, unspecified; D68.59 Other primary thrombophilia; E66.01 Morbid (severe) obesity due to excess calories; E74.39 Other disorders of intestinal carbohydrate absorption; E87.6 Hypokalemia; F17.200 Nicotine dependence, unspecified, uncomplicated; J45.909 Unspecified asthma, uncomplicated; K76.0 Fatty (change of) liver, not elsewhere classified; N83.201 Unspecified ovarian cyst, right side; N83.202 Unspecified ovarian cyst, left side; Z79.01 Long term (current) use of anticoagulants; Z86.711 Personal history of pulmonary embolism; Z86.73 Personal history of transient ischemic attack (TIA), and cerebral infarction without residual deficits; Z90.49 Acquired absence of other specified parts of digestive tract; Z98.51 Tubal ligation status; G43.909 Migraine, unspecified, not intractable, without status migrainosus; F41.9 Anxiety disorder, unspecified; R73.03 Prediabetes; E78.5 Hyperlipidemia, unspecified; Z68.43 Body mass index [BMI] 50.0-59.9, adult
CPT/HCPCS: 36415; 76700; 80053; 80061; 82550; 83036; 83615; 83690; 84439; 84443; 84480; 84484; 85025; 85027; 85378; 85610; 85730; 93005; 93306; 93970; 96372; 96374; 96375; 96376; 99285; C9113; G0378; J1650

== ENCOUNTER 2018-06-22 09:54 | Outpatient (CLI) | payer MEDICAID | END 2018-06-22 09:55 | disposition home or self-care (01) | LOC: RAD 09:54 ==